=== PATIENT | male | born 1980 | race Hispanic/Latino ===

== ENCOUNTER 2024-10-02 13:03 | Inpatient (IN) | payer BC ==
[~2024-10-02] VITALS: Ht 180.3 cm; Wt 104.3 kg
[2024-10-02] VITALS (8 sets, daily range): BP systolic 93–105; BP diastolic 68–80; PULSE 74–86; RESP 18; TEMP 97.5–97.7; O2SAT 96–100
[2024-10-02] MEDS ORDERED: BENZONATATE 100 MG CAP PO PRN (13:45)
[2024-10-02] MEDS ORDERED: ONDANSETRON HCL INJ 2MG/ML 2ML 2 MG/ML VIAL IV PRN (13:45)
[2024-10-02] MEDS ORDERED: POTASSIUM CHLORIDE 20 MEQ TAB CR PO PRN (13:45)
[2024-10-02] MEDS ORDERED: MELATONIN 5 MG TABLET PO PRN (13:45)
[2024-10-02] MEDS ORDERED: ALBUTEROL/IPRATROPIUM 3 ML NEB NEB PRN (13:45)
[2024-10-02] MEDS ORDERED: DIPHENHYDRAMINE HCL 25 MG CAP PO PRN (13:45)
[2024-10-02] MEDS ORDERED: DOCUSATE SODIUM 100 MG CAP PO PRN (13:45)
[2024-10-02] MEDS ORDERED: DEXTROSE 50% SYRINGE 50 ML IV PRN (13:45)
[2024-10-02] MEDS ORDERED: SIMETHICONE 80 MG CHEW PO PRN (13:45)
[2024-10-02] MEDS ORDERED: HYDRALAZINE HCL 20 MG/ML VIAL IV PRN (13:45)
[2024-10-02] MEDS ORDERED: SPIRONOLACTONE25 MG PO (13:50)
[2024-10-02] MEDS ORDERED: COREG3.125 MG PO (13:50)
[2024-10-02] MEDS ORDERED: ASPIRIN EC81 MG PO (13:50)
[2024-10-02] MEDS ORDERED: LISINOPRIL5 MG PO (13:50)
[2024-10-02] MEDS ORDERED: CLOPIDOGREL75 MG PO (13:50)
[2024-10-02] MEDS ORDERED: FUROSEMIDE40 MG PO (13:50)
[2024-10-02] MEDS ORDERED: ATORVASTATIN CA20 MG PO (13:50)
[2024-10-02 14:31] LABS: BASOPHILS % 0.4 % (0.0-1.0); EOSINOPHILS % 1.2 % (0.0-6.0); LYMPHOCYTES % 22.5 % (18.0-39.1); MONOCYTES % 8.2 % (4.4-11.3); NEUTROPHILS % 67.4 % (38.7-80.0); RED CELL DISTRIBUTION WIDTH 13.0 % (11.7-14.4)
[2024-10-02 15:00] LABS: EST GLOMERULAR FILTRATION RATE 65.0 ML/MIN (>=60)
[2024-10-02] MEDS: FUROSEMIDE INJ 100 MG in SODIUM CHLORIDE 0.9% 90 ML IV SCH (16:53)
[2024-10-02] MEDS: ENOXAPARIN SOD INJ 40 MG/0.4 ML SYR SC SCH (16:54)
[2024-10-02] MEDS ORDERED: CARVEDILOL 3.125 MG TAB PO SCH (17:00)
[2024-10-03] VITALS (9 sets, daily range): BP systolic 96–106; BP diastolic 68–83; PULSE 82–89; RESP 18–19; TEMP 97.3–98.2; O2SAT 95–100
[2024-10-03 05:26] LABS: BASOPHILS % 0.4 % (0.0-1.0); EOSINOPHILS % 1.2 % (0.0-6.0); LYMPHOCYTES % 23.2 % (18.0-39.1); MONOCYTES % 10.4 % (4.4-11.3); NEUTROPHILS % 64.4 % (38.7-80.0); RED CELL DISTRIBUTION WIDTH 13.1 % (11.7-14.4)
[2024-10-03 05:59] LABS: CHOL/HDL RATIO 5.8 (3.9-4.7); EST GLOMERULAR FILTRATION RATE 65.0 ML/MIN (>=60); LDL CHOLESTEROL 96.0 MG/DL (60-130)
[2024-10-03] MEDS: PANTOPRAZOLE SOD 40 MG TABEC PO SCH (08:32)
[2024-10-03] MEDS: ASPIRIN 81 MG ENTERIC COATED PO SCH (08:32)
[2024-10-03] MEDS: ATORVASTATIN 40 MG TAB PO SCH (08:32)
[2024-10-03] MEDS: CLOPIDOGREL BISULFATE 75 MG TAB PO SCH (08:32)
[2024-10-03] MEDS: METOLAZONE 5 MG TAB PO ONE (14:48)
[2024-10-03] MEDS: CEPACOL SORE THROAT LOZENGES PO PRN (18:33)
[2024-10-04] VITALS (10 sets, daily range): BP systolic 97–108; BP diastolic 68–87; PULSE 73–88; RESP 16–20; TEMP 97.5–98.9; O2SAT 96–100
[2024-10-04] MEDS: ACETAMINOPHEN 325 MG TAB PO PRN (01:18)
[2024-10-04 05:12] LABS: BASOPHILS % 0.3 % (0.0-1.0); EOSINOPHILS % 0.9 % (0.0-6.0); LYMPHOCYTES % 17.5 % (18.0-39.1); MONOCYTES % 9.9 % (4.4-11.3); NEUTROPHILS % 71.0 % (38.7-80.0); RED CELL DISTRIBUTION WIDTH 12.8 % (11.7-14.4)
[2024-10-04 05:43] LABS: EST GLOMERULAR FILTRATION RATE 59.0 ML/MIN (>=60)
[2024-10-04] MEDS: CYCLOBENZAPRINE HCL 10 MG TAB PO PRN (09:52)
[2024-10-04] MEDS: FUROSEMIDE INJ 10 MG/ML 4 ML VIAL IV SCH (14:01)
[2024-10-04] MEDS: SACUBITRIL/VALSARTAN 24MG/26MG 1 EA TAB PO SCH (16:56)
[2024-10-04 18:40] LABS: CREATININE,URINE RANDOM 29.75 mg/dL (63-166)
[2024-10-04 18:46] LABS: TOTAL PROTEIN, URINE < 6.8 mg/dL (1-14)
[2024-10-05] VITALS (8 sets, daily range): BP systolic 91–96; BP diastolic 63–80; PULSE 73–88; RESP 16–18; TEMP 97.5–97.6; O2SAT 96–100
[2024-10-05 05:49] LABS: EST GLOMERULAR FILTRATION RATE 62.0 ML/MIN (>=60)
== END 2024-10-05 15:30 | disposition home or self-care (01) | DRG 291 ==
LOC: MED/SURG 13:09
PROVIDERS: ADMIT Internal Medicine; ATTEND Internal Medicine
DX: I13.0 Hypertensive heart and chronic kidney disease with heart failure and stage 1 through stage 4 chronic kidney disease, or unspecified chronic kidney disease (principal); I50.43 Acute on chronic combined systolic (congestive) and diastolic (congestive) heart failure; N17.9 Acute kidney failure, unspecified; E88.09 Other disorders of plasma-protein metabolism, not elsewhere classified; E11.22 Type 2 diabetes mellitus with diabetic chronic kidney disease; D75.1 Secondary polycythemia; D72.829 Elevated white blood cell count, unspecified; N18.30 Chronic kidney disease, stage 3 unspecified; E78.5 Hyperlipidemia, unspecified; Z79.02 Long term (current) use of antithrombotics/antiplatelets; Z79.82 Long term (current) use of aspirin; Z95.810 Presence of automatic (implantable) cardiac defibrillator
CPT/HCPCS: 36415; 71046; 76770; 80048; 80053; 80061; 82570; 83036; 83735; 83880; 84156; 84443; 85014; 85018; 85025; 94799; J1650; J1938; J1940; J2470; J7050

== ENCOUNTER 2025-01-15 19:20 | Inpatient (IN) | payer BC ==
[~2025-01-15] VITALS: Ht 180.3 cm; Wt 104.3 kg
[~2025-01-15 19:20] MED LIST: ASPIRIN EC81 MG PO; ATORVASTATIN CA20 MG PO; CLOPIDOGREL75 MG PO; COREG3.125 MG PO; FUROSEMIDE40 MG PO; LISINOPRIL5 MG PO; SPIRONOLACTONE25 MG PO
[2025-01-15 19:49] VITALS: TEMP 98
[2025-01-15 20:04] LABS: BASOPHILS % 0.5 % (0.0-1.0); EOSINOPHILS % 1.0 % (0.0-6.0); LYMPHOCYTES % 19.2 % (18.0-39.1); MONOCYTES % 6.7 % (4.4-11.3); NEUTROPHILS % 72.4 % (38.7-80.0); RED CELL DISTRIBUTION WIDTH 15.9 % (11.7-14.4)
[2025-01-15 20:28] LABS: EST GLOMERULAR FILTRATION RATE 52.0 ML/MIN (>=60)
[2025-01-15] MEDS ORDERED: SODIUM CHLORIDE FLUSH 10 ML SYR INJ PRN (20:45)
[2025-01-15] MEDS ORDERED: Morphine 2mg Syringe 2 MG/ML SYR IV PRN (20:45)
[2025-01-15] MEDS ORDERED: ONDANSETRON HCL INJ 2MG/ML 2ML 2 MG/ML VIAL IV PRN (20:45)
[2025-01-15] MEDS: FUROSEMIDE INJ 10 MG/ML 4 ML VIAL IV SCH (20:56)
[2025-01-15] MEDS: FUROSEMIDE INJ 10 MG/ML 2 ML VIAL IV ONE (21:00)
[2025-01-15 21:55] VITALS: PULSE 64; RESP 14; O2SAT 98
[2025-01-16] VITALS (8 sets, daily range): BP systolic 92–111; BP diastolic 64–80; PULSE 63–79; RESP 18–20; TEMP 97.4–98.1; O2SAT 95–100
[2025-01-16 05:48] LABS: BASOPHILS % 0.5 % (0.0-1.0); EOSINOPHILS % 1.6 % (0.0-6.0); LYMPHOCYTES % 30.1 % (18.0-39.1); MONOCYTES % 8.5 % (4.4-11.3); NEUTROPHILS % 59.1 % (38.7-80.0); RED CELL DISTRIBUTION WIDTH 15.6 % (11.7-14.4)
[2025-01-16 06:39] LABS: EST GLOMERULAR FILTRATION RATE 57.0 ML/MIN (>=60)
[2025-01-16 06:40] LABS: CORONAVIRUS COVID-19 AG NEGATIVE (NEGATIVE)
[2025-01-16] MEDS ORDERED: ACETAMINOPHEN 325 MG TAB PO PRN (08:45)
[2025-01-16] MEDS ORDERED: POLYETHYLENE GLYCOL 3350 17 GM PACK PO PRN (08:45)
[2025-01-16] MEDS: DOCUSATE SODIUM 100 MG CAP PO SCH (08:53)
[2025-01-16] MEDS ORDERED: FARXIGA10 MG (08:57)
[2025-01-16] MEDS ORDERED: BUMETANIDE1 MG PO (08:57)
[2025-01-16] MEDS ORDERED: METOPROLOL SUCC25 MG PO (08:58)
[2025-01-16] MEDS ORDERED: ENTRESTO 24 MG1 EACH (08:58)
[2025-01-16] MEDS: METOPROLOL SUCCINATE 25 MG TAB XL PO SCH (20:30)
[2025-01-16] MEDS: CLOPIDOGREL BISULFATE 75 MG TAB PO SCH (21:01)
[2025-01-16] MEDS: ATORVASTATIN 20 MG TAB PO SCH (21:02)
[2025-01-16] MEDS: SPIRONOLACTONE 25 MG TAB PO SCH (21:02)
[2025-01-16] MEDS: SACUBITRIL/VALSARTAN 24MG/26MG 1 EA TAB PO SCH (21:02)
[2025-01-16] MEDS: ASPIRIN 81 MG ENTERIC COATED PO SCH (21:02)
[2025-01-17] VITALS: BP 94/60; PULSE 69; RESP 18; TEMP 98.2; O2SAT 100
[2025-01-17 04:00] VITALS: BP 94/74; PULSE 82; RESP 18; TEMP 97.5; O2SAT 100
[2025-01-17 06:40] LABS: EST GLOMERULAR FILTRATION RATE 63.0 ML/MIN (>=60)
[2025-01-17 07:57] VITALS: BP 95/77; PULSE 80; RESP 18; TEMP 97.2; O2SAT 100
[2025-01-17 08:03] VITALS: BP 95/77; PULSE 80; RESP 18; TEMP 97.2; O2SAT 100
[2025-01-17 12:49] VITALS: BP 95/70; PULSE 75; RESP 18; TEMP 97.7; O2SAT 100
[2025-01-17 15:22] VITALS: BP 91/72; PULSE 77; RESP 18; TEMP 97.8; O2SAT 99
[2025-01-17] MEDS ORDERED: BUMETANIDE1 MG PO (17:37)
== END 2025-01-17 18:50 | disposition home or self-care (01) | DRG 291 ==
LOC: ER 19:25 → ERHOLD 20:45 → MED/SURG2 01-16 07:36
PROVIDERS: ADMIT Internal Medicine; ATTEND Internal Medicine
DX: I11.0 Hypertensive heart disease with heart failure (principal); I50.23 Acute on chronic systolic (congestive) heart failure; E78.5 Hyperlipidemia, unspecified; Z95.810 Presence of automatic (implantable) cardiac defibrillator; R73.03 Prediabetes; E66.9 Obesity, unspecified; Z68.32 Body mass index [BMI] 32.0-32.9, adult; Z87.891 Personal history of nicotine dependence; Z11.52 Encounter for screening for COVID-19; Z86.73 Personal history of transient ischemic attack (TIA), and cerebral infarction without residual deficits; Z79.02 Long term (current) use of antithrombotics/antiplatelets; Z79.82 Long term (current) use of aspirin; Z79.899 Other long term (current) drug therapy
CPT/HCPCS: 36415; 71045; 80053; 82550; 83690; 83880; 84484; 85025; 93005; 93306; 94799; 99284; J1938